=== PATIENT | female | born 1970 | race Caucasian/White ===

== ENCOUNTER 2017-03-29 17:51 | Emergency (ER) | payer OTHER ==
[~2017-03-29] VITALS: Ht 172.7 cm; Wt 65.9 kg
[~2017-03-29 17:51] MED LIST: ALBU2.5V NPPB; ALBU8.5H5 INH; BENZ100C17 PO; CARV12.543 PO; CITA10TA8 PO; DEXT10TA7 PO; DIAZ10TA4 PO; DOXY100T PO; ESTR; FLUT12AE2 INH; FLUT16SP NAS; FLUT1DIS3 INH; GLUC500T11 PO; IPRATROPIUM NEB; LORA-445 PO; LOSA50TA6 PO; METH4TAB2 PO; MONT10TA6 PO; MORP15TA PO; OMEG500C PO; OXYC-307 PO
[2017-03-29] MEDS ORDERED: SODIUM CHLORIDE 0.9% 1,000ML IVBOLUS ONE (18:30)
[2017-03-29] MEDS ORDERED: DIPH,PERTUSS(ACELL),TET VAC/PF 0.5 ML IM-VACC ONE ×2 (18:30→18:40)
[2017-03-29] MEDS ORDERED: HYDROcodone/APAP 5/325 TABLET PO ONE (18:30)
[2017-03-29] MEDS ORDERED: CLINDAMYCIN 150 MG CAPSULE PO ONE (18:30)
[2017-03-29] MEDS ORDERED: SODIUM CHLORIDE FLUSH 10ML SYR IVF ONE (18:30)
[2017-03-29] MEDS ORDERED: HYDROcodone/APAP 5/325 TABLET ONE (18:40)
[2017-03-29] MEDS ORDERED: CLINDAMYCIN 150 MG CAPSULE ONE (18:40)
[2017-03-29 19:09] LABS: HEMATOCRIT 42.6 % (34.6-47.8); HEMOGLOBIN 14.4 g/dL (11.7-16.4); WHITE BLOOD COUNT 5.1 x10^3/uL (3.4-10)
[2017-03-29 19:18] LABS: BLOOD UREA NITROGEN 8 mg/dL (7-18)
[2017-03-29 19:32] VITALS: BP 145/91
== END 2017-03-29 19:44 | disposition home or self-care (01) ==
LOC: ED 19:35
DX: S61.451A Open bite of right hand, initial encounter (principal); L03.90 Cellulitis, unspecified; Z90.49 Acquired absence of other specified parts of digestive tract; J45.909 Unspecified asthma, uncomplicated; M54.9 Dorsalgia, unspecified; G89.29 Other chronic pain; W55.01XA Bitten by cat, initial encounter; Y93.89 Activity, other specified; Y99.8 Other external cause status; Y92.89 Other specified places as the place of occurrence of the external cause
CPT/HCPCS: 36415; 80048; 82040; 83605; 85025; 87040; 90471; 90715

== ENCOUNTER 2020-09-07 10:18 | Emergency (ER) | payer BC, MEDICAID ==
[~2020-09-07] VITALS: Ht 172.7 cm; Wt 84.4 kg
[~2020-09-07 10:18] MED LIST changes: +BENZ-17 PO; -BENZ100C17 PO; -FLUT16SP NAS; +FLUT16SP24 NAS; +LOSA50TA14 PO; -LOSA50TA6 PO; -OXYC-307 PO; +OXYC-380 PO
--- NOTE | 2020-09-07 10:45 | NUR ---
manager assessment completed. Med rec done. Pt notably jaundiced. States pain in abd has been present for years but has become significantly worse the last few days with pain increasing after any PO intake including fluids causing decreased PO fluids and decreased uop reported. Pt aware of need for UA sample as soon as she is able with call light in reach.
[2020-09-07] MEDS ORDERED: METO50TA82 PO (10:50)
--- NOTE | 2020-09-07 10:55 | NUR ---
payroll technician at bedside for draw. Awaiting UA sample and US tech.
--- NOTE | 2020-09-07 11:13 | NUR ---
Pt custom protection officer light for c/o severe nausea. [employer] tech at bedside already provided an emesis bag. Pt states nausea came about with lab draw and has since moderately subsided. 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
[2020-09-07 11:15] LABS: BASOPHILS % (AUTO) 1 % (0-1); EOSINOPHILS % (AUTO) 0 % (1-7); LYMPHOCYTES % (AUTO) 26 % (22-44); MEAN CORPUSCULAR HGB CONC 34.5 g/dL (32.4-35.8); MONOCYTES % (AUTO) 12 % (2-9); NEUTROPHILS % (AUTO) 61 % (42-75); PLATELET COUNT 141 x10^3/uL (130-400); RED BLOOD COUNT 3.55 x10^6/uL (3.82-5.3); RED CELL DISTRIBUTION WIDTH 16.9 % (9.6-15.2)
[2020-09-07 11:18] LABS: MD NO
[2020-09-07 11:25] LABS: ALBUMIN 2.7 g/dL (3.4-5.0); ANION GAP 8 mmol/L (5-15); CALCIUM 8.3 mg/dL (8.5-10.1); CHLORIDE 99 mmol/L (98-107)
[2020-09-07 11:29] LABS: ALANINE AMINOTRANSFERASE 61 U/L (12-78); ALKALINE PHOSPHATASE 304 U/L (45-117); BILIRUBIN,TOTAL 5.3 mg/dL (0.2-1.0); CREATININE 0.58 mg/dL (0.55-1.02); TOTAL PROTEIN 7.4 g/dL (6.4-8.2)
[2020-09-07] MEDS ORDERED: ONDANSETRON ODT 8 MG ONE (11:39)
--- NOTE | 2020-09-07 11:41 | NUR ---
US in progress. Medicated for nausea at this time.
[2020-09-07] MEDS ORDERED: ONDANSETRON ODT 4 MG PO ONE (12:00)
--- NOTE | 2020-09-07 12:01 | NUR ---
Lab results reviewed. Noted total bilirubin >5.0 and lipase WNL. Awaiting US reading before MD recheck requested.
--- NOTE | 2020-09-07 12:23 | NUR ---
Pt states nausea is still present but much much better than before since media marketing coordinator. Pt given clean catch instructions and attempting ua sample now in restroom.
[2020-09-07 13:17] VITALS: BP 134/72
[2020-09-07 13:42] LABS: MICROSCOPIC INDICATED
== END 2020-09-07 13:19 | disposition home or self-care (01) ==
LOC: ED 13:13
DX: K29.20 Alcoholic gastritis without bleeding (principal); K70.30 Alcoholic cirrhosis of liver without ascites; I10 Essential (primary) hypertension; J45.909 Unspecified asthma, uncomplicated; R11.10 Vomiting, unspecified
CPT/HCPCS: 36415; 76700; 80053; 81001; 83690; 85025; 87086; 99284; Q0162

== ENCOUNTER 2021-02-13 13:36 | Emergency (ER) | payer BC ==
[~2021-02-13] VITALS: Ht 172.7 cm; Wt 76.7 kg
[~2021-02-13 13:36] MED LIST changes: +METO50TA82 PO; -OXYC-380 PO; +OXYC-501 PO
--- NOTE | 2021-02-13 14:58 | NUR ---
uniform maker note: Pt to room from lobby.
[2021-02-13 15:19] LABS: BASOPHILS % (AUTO) 1 % (0-1); EOSINOPHILS % (AUTO) 1 % (1-7); LYMPHOCYTES % (AUTO) 18 % (22-44); MEAN CORPUSCULAR HEMOGLOBIN 38.5 pg (27.0-34.8); MEAN PLATELET VOLUME 8.1 fL (7.4-10.4); MONOCYTES % (AUTO) 11 % (2-9); NEUTROPHILS % (AUTO) 71 % (42-75); PLATELET COUNT 242 x10^3/uL (130-400); RED BLOOD COUNT 2.69 x10^6/uL (3.82-5.3); RED CELL DISTRIBUTION WIDTH 17.9 % (9.6-15.2)
--- NOTE | 2021-02-13 15:27 | NUR ---
CC OF ABD PAIN AND DISTENTION THAT " APPEARED OVER NIGHT". PT TOLD TO COME TO ER FROM GI MD AFTER APPOITMENT TODAY. PT WITH CONFUSING EXAMS FROM [facility] ABOUT LIVER. PT TOLD BY ONE DOCTOR "ITS IN BAD SHAPE" AND TOLD BY ANOTHER "ITS NOT THAT BAD AND IT WOULD BE SYED TO NOT DRINK ALCOHOL". PT STATES SHE HAS BEEN ON AND OFF SOBER FROM ALCOHOL, BUT LAST DRINK WAS SOME VODKA THIS AM. PT WITH JAUNDICE EYES AND SKIN AND DISTENDED ABD, STATES "I WOKE UP THIS AM AND LOOKED ".
[2021-02-13 15:28] LABS: ALANINE AMINOTRANSFERASE 40 U/L (12-78); ANION GAP 9 mmol/L (5-15); CHLORIDE 103 mmol/L (98-107); CREATININE 0.61 mg/dL (0.55-1.02)
[2021-02-13 15:31] LABS: ALKALINE PHOSPHATASE 187 U/L (45-117); BILIRUBIN,TOTAL 7.5 mg/dL (0.2-1.0)
[2021-02-13 16:07] LABS: MICROSCOPIC INDICATED
[2021-02-13 16:44] LABS: <PLATELET ESTIMATE> ADEQUATE; <PLT MORPHOLOGY> NORMAL PLT MORPH; POLYCHROMASIA 1+; ROULEAUX 1+
[2021-02-13] MEDS ORDERED: SODIUM CHLORIDE 0.9% 1,000ML IVBOLUS ONE (17:30)
--- NOTE | 2021-02-13 17:45 | NUR ---
PER ER MD HOLD NS BOLUS.
[2021-02-13 18:00] VITALS: BP 118/73
--- NOTE | 2021-02-13 18:14 | NUR ---
Patient given discharge instructions and they have confirmed that they understand the instructions. Patient ambulatory with steady gait. NAD, all questions answered appropriately, denies additional needs at this time. No personal belongings left in room after discharge.
== END 2021-02-13 18:38 | disposition home or self-care (01) ==
LOC: ED 18:34
DX: K70.0 Alcoholic fatty liver (principal); F10.20 Alcohol dependence, uncomplicated; R17 Unspecified jaundice; R10.10 Upper abdominal pain, unspecified; I10 Essential (primary) hypertension; J45.909 Unspecified asthma, uncomplicated; Y90.0 Blood alcohol level of less than 20 mg/100 ml
CPT/HCPCS: 36415; 76700; 80053; 81001; 83690; 85025; 87086; 99285